=== PATIENT | female | born 1935 | race Hispanic/Latino ===

== ENCOUNTER 2024-09-05 08:34 | Day surgery (SDC) | payer MEDICARE ==
[~2024-09-05] VITALS: Ht 154.9 cm; Wt 43.5 kg
[2024-09-05] VITALS (11 sets, daily range): BP systolic 123–150; BP diastolic 57–70; PULSE 75–87; RESP 12–18; TEMP 97–98.1
[2024-09-05] MEDS ORDERED: MOM30 PO (12:17)
[2024-09-05] MEDS ORDERED: MEMA5TAB16 PO (12:17)
[2024-09-05] MEDS ORDERED: LEVO50CA4 PO (12:17)
[2024-09-05] MEDS ORDERED: MULT-1203 PO (12:17)
[2024-09-05] MEDS ORDERED: LACT-441 PO (12:17)
[2024-09-05] MEDS ORDERED: FOLI0.8T22 PO (12:17)
[2024-09-05] MEDS ORDERED: ZINC220T4 PO (12:17)
[2024-09-05] MEDS ORDERED: ESCI-8 PO (12:17)
[2024-09-05] MEDS: 0.9%NACL 1000ML 1,000 ML IV ONE (12:23)
[2024-09-05] MEDS ORDERED: ceFAZolin SODIUM 1 GM VIAL ONE (12:54)
== END 2024-09-05 14:35 ==
LOC: ENDO 08:34 → DAH 08:34 → ENDO 14:35
PROVIDERS: ATTEND Internal Medicine Gastroenterology
DX: R13.12 Dysphagia, oropharyngeal phase (principal); R63.4 Abnormal weight loss; R63.30 Feeding difficulties, unspecified; K44.9 Diaphragmatic hernia without obstruction or gangrene; R63.39 Other feeding difficulties; F32.A Depression, unspecified; E03.9 Hypothyroidism, unspecified; G30.9 Alzheimer's disease, unspecified; F02.80 Dementia in other diseases classified elsewhere, unspecified severity, without behavioral disturbance, psychotic disturbance, mood disturbance, and anxiety; Z79.899 Other long term (current) drug therapy
CPT/HCPCS: 43246; J0690; J7030; A4620; A4215 ×2; A4223; A4222; A4221; A4663; A4606